=== PATIENT | male | born 1995 | race Hispanic/Latino ===

== ENCOUNTER 2023-09-07 15:26 | Outpatient (CLI) | payer OTHER | END 2023-09-07 15:27 | disposition home or self-care (01) | LOC: RAD 15:26 | PROVIDERS: ATTEND Family Medicine | DX: M41.85 Other forms of scoliosis, thoracolumbar region (principal); M43.8X3 Other specified deforming dorsopathies, cervicothoracic region | CPT/HCPCS: 72081 ==